=== PATIENT | male | born 1935 | race Caucasian/White ===

== ENCOUNTER → 2016-11-29 | Outpatient (REF) | payer MEDICARE ==
[~2016-11-29] MED LIST: /AUGM875TA OR; /GLIP10TAB OR; ASPI81TA83 OR; CIPR250T3 OR; COLA100C2 OR; GLUC5TAB PO; INSULANT SC; MYCOLOG CREAM TD; PERC5TAB8 OR; PERC7.5T8 OR; senokot PO
[2016-11-29 17:07] LABS: BASO # 0.1 K/mm3 (0.0-0.2); BASO % 0.9 % (0.0-1.0); EOS # 0.4 K/mm3 (0.0-0.50); EOS % 6.3 % (0.0-3.0); LARGE UNSTAINED CELL # 0.2 K/mm3 (0.0-0.4); LARGE UNSTAINED CELL % 3.1 % (0.0-4.0); LYMPH # 1.7 K/mm3 (1.5-4.5); LYMPH % 26.1 % (24.0-44.0); MEAN CORPUSCULAR HEMOGLOBIN 30.7 pg (27.0-33.0); MEAN CORPUSCULAR HGB CONC 32.3 g/dl (32.0-36.5); MEAN CORPUSCULAR VOLUME 95.3 fl (80.0-96.0); MONO # 0.4 K/mm3 (0.0-0.8); MONO % 5.8 % (0.0-5.0); NEUTROPHILS # 3.8 K/mm3 (1.8-7.7); NEUTROPHILS % 57.9 % (36.0-66.0); PLATELET COUNT, AUTOMATED 205 k/mm3 (150-450); RED CELL DISTRIBUTION WIDTH 13.2 % (11.5-14.5); WHITE BLOOD COUNT 6.6 K/mm3 (4.0-10.0)
[2016-11-29 17:35] LABS: ALBUMIN 3.4 GM/DL (3.2-5.2); ALBUMIN/GLOBULIN RATIO 1.17 (1.00-1.93); BILIRUBIN,TOTAL 0.6 MG/DL (0.2-1.0); CALCIUM LEVEL 8.2 MG/DL (8.8-10.2); CREATININE FOR GFR 1.92 MG/DL (0.70-1.30); TOTAL PROTEIN 6.3 GM/DL (6.4-8.2)
[2016-11-29 17:45] LABS: POTASSIUM SERUM 5.3 MEQ/L (3.5-5.1)
== END ==
LOC: M SFHCCAPE 09:46
PROVIDERS: ATTEND Physician Assistant
DX: E11.9 Type 2 diabetes mellitus without complications (principal); Z12.5 Encounter for screening for malignant neoplasm of prostate; E55.9 Vitamin D deficiency, unspecified
CPT/HCPCS: 36415; 80053; 80061; 82043; 82306; 83036; 84439; 84443; 85025; G0103

== ENCOUNTER → 2018-09-05 | Outpatient (REF) | payer MEDICARE ==
[~2018-09-05] MED LIST changes: +ALCOPAD17 TOP; +AMLO10TA5 PO; +BLOOKIT21 XX; +GLUC1TES2 XX; +LANC30MI XX; +LANTINJ4 SQ; +VELT1POW PO
[2018-09-05 17:40] LABS: PERCENT SATURATION 42.9 % (19.7-50.0)
== END ==
LOC: M LAB REF 16:51
PROVIDERS: ATTEND Internal Medicine Nephrology
DX: E87.5 Hyperkalemia (principal); D64.9 Anemia, unspecified

== ENCOUNTER → 2018-10-20 | Outpatient (REF) | payer MEDICARE ==
[2018-10-20 13:43] LABS: CREATININE,RANDOM URINE 49.3 MG/DL; POTASSIUM RANDOM URINE 28.1 MEQ/L
== END ==
LOC: M LAB REF 12:59
PROVIDERS: ATTEND Internal Medicine Nephrology
DX: E87.2 Acidosis (principal)

== ENCOUNTER 2023-10-01 11:58 | Inpatient (IN) | payer MEDICARE ==
[~2023-10-01] VITALS: Ht 182.9 cm; Wt 90.9 kg
[~2023-10-01 11:58] MED LIST changes: -AMLO10TA5 PO; +AMLO1TAB25 PO
[2023-10-01] MEDS ORDERED: HYDR-3490 PO (12:17)
[2023-10-01] MEDS ORDERED: MAGN400T2 PO (12:17)
[2023-10-01] MEDS ORDERED: ALLO100T PO (12:17)
[2023-10-01] MEDS ORDERED: CALC1CAP31 PO (12:17)
[2023-10-01 14:25] LABS: BASO # 0.1 10^3/uL (0.0-0.2); BASO % 0.7 % (0.0-1.0); EOS # 0.1 10^3/uL (0.0-0.5); EOS % 1.1 % (0.0-3.0); HEMATOCRIT 36.9 % (42.0-52.0); HEMOGLOBIN 11.9 g/dl (13.5-17.5); LYMPH # 1.2 10^3/uL (1.5-5.0); LYMPH % 11.8 % (24.0-44.0); MEAN CORPUSCULAR HEMOGLOBIN 31.7 pg (27.0-33.0); MEAN CORPUSCULAR HGB CONC 32.2 g/dl (32.0-36.5); MEAN CORPUSCULAR VOLUME 98.4 fl (80.0-96.0); MONO # 0.7 10^3/uL (0.0-0.8); MONO % 6.7 % (2.0-8.0); NEUTROPHILS # 7.7 10^3/uL (1.5-8.5); NEUTROPHILS % 78.8 % (36.0-66.0); PLATELET COUNT, AUTOMATED 225 10^3/uL (150-450); RED BLOOD COUNT 3.75 10^6/uL (4.30-6.10); WHITE BLOOD COUNT 9.8 10^3/uL (4.0-10.0)
[2023-10-01] MEDS: NS 1,000 ML IV ONE (14:41)
[2023-10-01 14:53] LABS: ALBUMIN 3.2 G/DL (3.2-5.2); ALKALINE PHOSPHATASE 123 U/L (46-116); ALT/SGPT < 9 U/L (7.0-40); AST/SGOT < 8 U/L (<34); BILIRUBIN,DIRECT 0.2 MG/DL (<0.4); BILIRUBIN,TOTAL 0.4 MG/DL (0.3-1.2); TOTAL PROTEIN 6.4 G/DL (5.7-8.2)
[2023-10-01 15:32] LABS: LIPASE 848 U/L (12-53)
[2023-10-01] MEDS: MORPHINE 2 MG/ML 1ML VIAL IV ONE (16:18)
[2023-10-01 16:29] LABS: TRIGLYCERIDES LEVEL 66 MG/DL (<150)
[2023-10-01] MEDS: LR 1,000 ML IV ONE (16:30)
[2023-10-01 17:40] VITALS: BP 206/83; TEMP 97.7; O2SAT 97
[2023-10-01 18:18] VITALS: BP 198/72
[2023-10-01] MEDS: MORPHINE 4 MG/ML 1ML VIAL IV PRN (18:45)
[2023-10-01] MEDS ORDERED: TEMO0.0517 TOP (18:47)
[2023-10-01] MEDS ORDERED: SODI650T PO (18:49)
[2023-10-01] MEDS ORDERED: HOME MED LIST COMPLETE! XX SCH (18:50)
[2023-10-01 20:00] VITALS: BP 152/54; TEMP 97.9; O2SAT 96
[2023-10-01] MEDS: LR 1,000 ML IV SCH (20:56)
[2023-10-02] MEDS: MORPHINE 2 MG/ML 1ML VIAL IV PRN (00:49)
[2023-10-02 01:00] VITALS: BP 128/62; TEMP 98.1; O2SAT 95
[2023-10-02 06:00] VITALS: BP 180/60; TEMP 97.9; O2SAT 96
[2023-10-02] MEDS: HEPARIN SOD (PORCINE) 5000UNITS/ML 1ML VIAL/SYRINGE SQ SCH (06:09)
[2023-10-02 06:20] LABS: HEMATOCRIT 34.6 % (42.0-52.0); HEMOGLOBIN 11.1 g/dl (13.5-17.5); MEAN CORPUSCULAR HEMOGLOBIN 32.2 pg (27.0-33.0); MEAN CORPUSCULAR HGB CONC 32.1 g/dl (32.0-36.5); MEAN CORPUSCULAR VOLUME 100.3 fl (80.0-96.0); PLATELET COUNT, AUTOMATED 184 10^3/uL (150-450); RED BLOOD COUNT 3.45 10^6/uL (4.30-6.10); WHITE BLOOD COUNT 8.7 10^3/uL (4.0-10.0)
[2023-10-02 06:42] LABS: CALCIUM LEVEL 8.1 MG/DL (8.3-10.6); CREATININE FOR GFR 3.51 MG/DL (0.70-1.30); GLOMERULAR FILTRATION RATE 17.7 (>35); PHOSPHORUS LEVEL 4.5 MG/DL (2.4-5.1); POTASSIUM SERUM 5.5 MMOL/L (3.5-5.1)
[2023-10-02 06:53] VITALS: BP 126/64
[2023-10-02 14:15] VITALS: BP 135/65; TEMP 97.9; O2SAT 94
[2023-10-02 14:30] LABS: CALCIUM LEVEL 7.9 MG/DL (8.3-10.6); CREATININE FOR GFR 3.25 MG/DL (0.70-1.30); GLOMERULAR FILTRATION RATE 19.3 (>35); POTASSIUM SERUM 5.4 MMOL/L (3.5-5.1)
[2023-10-02] MEDS: LEVEMIR (INSULIN DETEMIR) 1 UNITS/0.01ML SC SCH (18:00)
[2023-10-02 20:00] VITALS: BP 158/70; TEMP 97.7; O2SAT 93
[2023-10-02 20:05] VITALS: BP 158/70
[2023-10-03 06:00] VITALS: BP 135/81; TEMP 98.1; O2SAT 94
[2023-10-03 06:39] LABS: HEMOGLOBIN 10.3 g/dl (13.5-17.5); MEAN CORPUSCULAR HEMOGLOBIN 31.7 pg (27.0-33.0); MEAN CORPUSCULAR HGB CONC 32.2 g/dl (32.0-36.5); MEAN CORPUSCULAR VOLUME 98.5 fl (80.0-96.0); PLATELET COUNT, AUTOMATED 160 10^3/uL (150-450); RED BLOOD COUNT 3.25 10^6/uL (4.30-6.10); WHITE BLOOD COUNT 7.2 10^3/uL (4.0-10.0)
[2023-10-03 07:03] LABS: CREATININE FOR GFR 3.21 MG/DL (0.70-1.30); GLOMERULAR FILTRATION RATE 19.6 (>35); MAGNESIUM LEVEL 1.8 MG/DL (1.8-2.4); POTASSIUM SERUM 5.4 MMOL/L (3.5-5.1)
[2023-10-03] MEDS: SODIUM BICARBONATE 325 MG TAB PO SCH (07:59)
[2023-10-03] MEDS: CALCITRIOL 0.25 MCG CAP (S0169) PO SCH (07:59)
[2023-10-03] MEDS: MAGNESIUM OXIDE 400MG TAB (MAG-OX) PO SCH (07:59)
[2023-10-03] MEDS: CALCIUM GLUCONATE 1,000 MG in D5W MINI-BAG PLUS 100 ML IV ONE (07:59)
[2023-10-03] MEDS: FUROSEMIDE 40MG/4ML VIAL IV ONE (08:00)
[2023-10-03] MEDS: PATIROMER SORBITEX CALCIUM 8.4 GM POWDER PACKET (VELTASSA) PO ONE (08:01)
[2023-10-03] MEDS: HumuLIN R (REGULAR) INSULIN (NovoLIN R) **100U/ML** PER UNIT IV STA (08:01)
[2023-10-03] MEDS: DEXTROSE 50% 50ML SYRINGE IV STA (08:01)
[2023-10-03 13:46] LABS: CALCIUM LEVEL 8.3 MG/DL (8.3-10.6); CREATININE FOR GFR 3.17 MG/DL (0.70-1.30); GLOMERULAR FILTRATION RATE 19.9 (>35); POTASSIUM SERUM 5.1 MMOL/L (3.5-5.1)
[2023-10-03 14:00] VITALS: BP 173/66; TEMP 97.9; O2SAT 89
[2023-10-03] MEDS ORDERED: DEXTROSE 50% 50ML SYRINGE IV PRN (18:05)
[2023-10-03] MEDS ORDERED: GLUCOSE 4GM CHEW TABLET PO PRN (18:05)
[2023-10-03] MEDS ORDERED: GLUCAGON INJ 1MG VIAL SC PRN (18:05)
[2023-10-03 19:54] VITALS: BP 158/64; TEMP 97.7; O2SAT 92
[2023-10-03] MEDS: INSULIN LISPRO (NovoLOG) PER UNIT SC SCH (20:38)
[2023-10-03 20:39] VITALS: BP 158/64
[2023-10-04 05:28] VITALS: BP 164/58; TEMP 98.1; O2SAT 93
[2023-10-04 07:16] LABS: HEMATOCRIT 29.8 % (42.0-52.0); HEMOGLOBIN 9.8 g/dl (13.5-17.5); MEAN CORPUSCULAR HEMOGLOBIN 31.9 pg (27.0-33.0); MEAN CORPUSCULAR HGB CONC 32.9 g/dl (32.0-36.5); MEAN CORPUSCULAR VOLUME 97.1 fl (80.0-96.0); PLATELET COUNT, AUTOMATED 129 10^3/uL (150-450); RED BLOOD COUNT 3.07 10^6/uL (4.30-6.10); WHITE BLOOD COUNT 7.3 10^3/uL (4.0-10.0)
[2023-10-04 07:41] LABS: CALCIUM LEVEL 7.9 MG/DL (8.3-10.6); CREATININE FOR GFR 3.26 MG/DL (0.70-1.30); GLOMERULAR FILTRATION RATE 19.2 (>35); MAGNESIUM LEVEL 1.7 MG/DL (1.8-2.4); PHOSPHORUS LEVEL 3.4 MG/DL (2.4-5.1)
[2023-10-04 08:23] LABS: HEMOGLOBIN A1c 7.4 % (4.0-6.0)
[2023-10-04] MEDS: INSULIN LISPRO (NovoLOG) PER UNIT SC SCH (08:26)
[2023-10-04] MEDS ORDERED: NORV5TAB PO (10:24)
== END 2023-10-04 13:30 | disposition home health service (06) | DRG 439 ==
LOC: M ED 11:58 → EDBD 11:58 → M ED INP 16:30 → ENRESERV 17:14 → M MS5PR 17:35
PROVIDERS: ADMIT Internal Medicine; ATTEND Internal Medicine
DX: K85.90 Acute pancreatitis without necrosis or infection, unspecified (principal); N18.4 Chronic kidney disease, stage 4 (severe); N17.9 Acute kidney failure, unspecified; Z66 Do not resuscitate; I12.9 Hypertensive chronic kidney disease with stage 1 through stage 4 chronic kidney disease, or unspecified chronic kidney disease; M10.9 Gout, unspecified; Z90.79 Acquired absence of other genital organ(s); Z90.49 Acquired absence of other specified parts of digestive tract; Z79.899 Other long term (current) drug therapy; E87.5 Hyperkalemia

== ENCOUNTER 2024-05-28 09:15 | Inpatient (IN) | payer MEDICARE ==
[~2024-05-28 09:15] MED LIST changes: +ALLO100T PO; +CALC1CAP31 PO; +HYDR-3490 PO; +INSULANT SQ; +MAGN400T2 PO; +NORV5TAB PO; +SODI650T PO; +TEMO0.0517 TOP
[2024-05-28 11:47] LABS: BASO # 0.2 10^3/uL (0.0-0.2); BASO % 2.5 % (0.0-1.0); EOS # 0.1 10^3/uL (0.0-0.5); EOS % 1.7 % (0.0-3.0); HEMATOCRIT 33.9 % (42.0-52.0); HEMOGLOBIN 10.6 g/dl (13.5-17.5); LYMPH # 1.3 10^3/uL (1.5-5.0); MEAN CORPUSCULAR HEMOGLOBIN 32.7 pg (27.0-33.0); MEAN CORPUSCULAR HGB CONC 31.3 g/dl (32.0-36.5); MEAN CORPUSCULAR VOLUME 104.6 fl (80.0-96.0); MONO # 0.6 10^3/uL (0.0-0.8); NEUTROPHILS # 5.3 10^3/uL (1.5-8.5); NEUTROPHILS % 70.1 % (36.0-66.0); PLATELET COUNT, AUTOMATED 210 10^3/uL (150-450); RED BLOOD COUNT 3.24 10^6/uL (4.30-6.10); WHITE BLOOD COUNT 7.5 10^3/uL (4.0-10.0)
[2024-05-28 12:02] LABS: INR 1.25; PROTHROMBIN TIME 15.3 SECONDS (12.5-14.5)
[2024-05-28 12:41] LABS: THYROID STIMULATING HORMONE 2.907 uIU/ML (0.55-4.78); THYROXINE (T4) 8.1 UG/DL (4.5-10.9)
[2024-05-28 13:06] LABS: ALBUMIN 3.4 G/DL (3.2-5.2); ALKALINE PHOSPHATASE 136 U/L (46-116); ALT/SGPT 12 U/L (7.0-40); AST/SGOT < 8 U/L (<34); BILIRUBIN,DIRECT 0.3 MG/DL (<0.4); BILIRUBIN,TOTAL 0.7 MG/DL (0.3-1.2); BLOOD UREA NITROGEN 73 MG/DL (9-23); CALCIUM LEVEL 9.1 MG/DL (8.3-10.6); CARBON DIOXIDE LEVEL 21 MMOL/L (20-31); CHLORIDE LEVEL 117 MMOL/L (98-107); CREATININE FOR GFR 4.01 MG/DL (0.70-1.30); GLOMERULAR FILTRATION RATE 15.1 (>35); GLUCOSE, FASTING 110 MG/DL (74-106); POTASSIUM SERUM 6.4 MMOL/L (3.5-5.1); SODIUM LEVEL 144 MMOL/L (136-145); TOTAL PROTEIN 6.5 G/DL (5.7-8.2)
[2024-05-28] MEDS: PATIROMER SORBITEX CALCIUM 8.4 GM POWDER PACKET (VELTASSA) PO ONE (13:34)
[2024-05-28] MEDS: CALCIUM CHLORIDE 10% 1 GM/10 ML SYR IV ONE (13:34)
[2024-05-28] MEDS: DEXTROSE 50% 50ML SYRINGE IV ONE (13:34)
[2024-05-28] MEDS: HumuLIN R (REGULAR) INSULIN (NovoLIN R) **100U/ML** PER UNIT IV ONE (13:34)
[2024-05-28] MEDS: SODIUM BICARBONATE 8.4% INJ 50ML SYRINGE IV ONE (13:35)
[2024-05-28] MEDS: amLODIPine 5 MG TAB PO ONE (13:51)
[2024-05-28] MEDS ORDERED: HOME MED LIST COMPLETE! XX SCH (14:05)
[2024-05-28] MEDS ORDERED: LABETALOL 100MG/20ML VIAL IV PRN (14:20)
[2024-05-28] MEDS ORDERED: DEXTROSE 50% 50ML SYRINGE IV PRN (14:30)
[2024-05-28] MEDS ORDERED: GLUCAGON INJ 1MG VIAL SC PRN (14:30)
[2024-05-28] MEDS ORDERED: GLUCOSE 4 GM CHEW PO PRN (14:30)
[2024-05-28] MEDS: FUROSEMIDE 100MG/10ML VIAL IV ONE (15:16)
[2024-05-28] MEDS: ALBUTEROL SULFATE 2.5MG/0.5ML INH NEB SOLN NEB ONE (15:16)
[2024-05-28 15:38] LABS: IRON (FE) 40 UG/DL (65-175); PERCENT SATURATION 14.6 % (19.7-50.0); TOTAL IRON BINDING CAPACITY 274 UG/DL (250-425)
[2024-05-28 15:41] LABS: FERRITIN 245.9 NG/ML (10.5-307.3); FOLATE 8.07 NG/ML (>5.4); VITAMIN B12 LEVEL 255 PG/ML (211-911)
[2024-05-28] MEDS: **hydrALAZINE HCL** 25 MG TAB PO SCH (16:00)
[2024-05-28] MEDS: INSULIN LISPRO (NovoLOG) PER UNIT SC SCH ×2 (16:37→20:07)
[2024-05-28 16:39] VITALS: BP 125/59; TEMP 97.9; O2SAT 100
[2024-05-28] MEDS: SODIUM BICARBONATE 325 MG TAB PO SCH (17:39)
[2024-05-28] MEDS: SODIUM BICARBONATE 8.4% INJ 50ML SYRINGE IV STA (18:56)
[2024-05-28] MEDS: FUROSEMIDE 20MG/2ML VIAL IV ONE (19:54)
[2024-05-28 19:56] VITALS: BP 145/66; TEMP 98.2; O2SAT 99
[2024-05-28] MEDS: HEPARIN SOD (PORCINE) 5000UNITS/ML 1ML VIAL/SYRINGE SC SCH (21:28)
[2024-05-28 23:31] VITALS: BP 139/63; TEMP 98.3; O2SAT 96
[2024-05-29] VITALS (7 sets, daily range): BP systolic 124–145; BP diastolic 56–85; TEMP 97.7–98.7; O2SAT 95–96
[2024-05-29] MEDS: ALBUTEROL SULFATE 2.5MG/0.5ML INH NEB SOLN NEB ONE (00:39)
[2024-05-29 06:24] LABS: HEMATOCRIT 29.5 % (42.0-52.0); HEMOGLOBIN 9.2 g/dl (13.5-17.5); MEAN CORPUSCULAR HEMOGLOBIN 32.1 pg (27.0-33.0); MEAN CORPUSCULAR HGB CONC 31.2 g/dl (32.0-36.5); MEAN CORPUSCULAR VOLUME 102.8 fl (80.0-96.0); PLATELET COUNT, AUTOMATED 191 10^3/uL (150-450); RED BLOOD COUNT 2.87 10^6/uL (4.30-6.10); WHITE BLOOD COUNT 7.5 10^3/uL (4.0-10.0)
[2024-05-29 06:35] LABS: CALCIUM LEVEL 8.7 MG/DL (8.3-10.6); CREATININE FOR GFR 4.32 MG/DL (0.70-1.30); GLOMERULAR FILTRATION RATE 13.9 (>35); POTASSIUM SERUM 5.5 MMOL/L (3.5-5.1)
[2024-05-29] MEDS: FUROSEMIDE 100MG/10ML VIAL IV ONE (13:02)
[2024-05-29] MEDS: PATIROMER SORBITEX CALCIUM 8.4 GM POWDER PACKET (VELTASSA) PO SCH (14:34)
[2024-05-30 03:24] VITALS: BP 119/55; TEMP 99.3; O2SAT 92
[2024-05-30 07:28] VITALS: BP_SYST 159; BP_DIAS 67; BP_DIAS 76; TEMP 99; O2SAT 95
[2024-05-30 09:07] LABS: HEMATOCRIT 30.3 % (42.0-52.0); HEMOGLOBIN 9.5 g/dl (13.5-17.5); MEAN CORPUSCULAR HEMOGLOBIN 32.4 pg (27.0-33.0); MEAN CORPUSCULAR HGB CONC 31.4 g/dl (32.0-36.5); MEAN CORPUSCULAR VOLUME 103.4 fl (80.0-96.0); PLATELET COUNT, AUTOMATED 195 10^3/uL (150-450); RED BLOOD COUNT 2.93 10^6/uL (4.30-6.10); WHITE BLOOD COUNT 6.2 10^3/uL (4.0-10.0)
[2024-05-30] MEDS: CALCIUM GLUCONATE 1,000 MG in D5W MINI-BAG PLUS 100 ML IV ONE (09:21)
[2024-05-30 09:35] LABS: CALCIUM LEVEL 8.9 MG/DL (8.3-10.6); CREATININE FOR GFR 4.7 MG/DL (0.70-1.30); GLOMERULAR FILTRATION RATE 12.6 (>35); POTASSIUM SERUM 5.9 MMOL/L (3.5-5.1)
[2024-05-30] MEDS: PATIROMER SORBITEX CALCIUM 8.4 GM POWDER PACKET (VELTASSA) PO SCH (12:46)
[2024-05-30] MEDS: FUROSEMIDE 100MG/10ML VIAL IV ONE (12:47)
[2024-05-30] MEDS: metOLazone 5 MG TAB PO ONE (12:48)
[2024-05-30 15:39] VITALS: BP 173/73; TEMP 98.4; O2SAT 97
[2024-05-30 15:43] VITALS: BP 136/64
[2024-05-30] MEDS: NS 1,000 ML IV SCH (16:23)
[2024-05-30 17:02] LABS: APPEARANCE, URINE CLEAR (CLEAR); BACTERIA, URINE AUTO NEGATIVE (NEGATIVE); BILIRUBIN, URINE AUTO NEGATIVE (NEGATIVE); BLOOD, URINE BLOOD NEGATIVE (NEGATIVE); COLOR, URINE YELLOW (YELLOW); GLUCOSE, URINE (UA) AUTO 1+ mg/dL (NEGATIVE); KETONE, URINE AUTO NEGATIVE (NEGATIVE); LEUKOCYTE ESTERASE, URINE AUTO NEGATIVE (NEGATIVE); MUCUS, URINE SMALL (NEGATIVE); NITRITE, URINE AUTO NEGATIVE (NEGATIVE); PROTEIN, URINE AUTO 1+ mg/dL (NEGATIVE); RBC, URINE AUTO 0 /HPF (0-3); SPECIFIC GRAVITY URINE AUTO 1.009 (1.002-1.035); SQUAMOUS EPITHELIAL CELL UR AU 0 /HPF (0-6); UROBILINOGEN, URINE AUTO 0.2 mg/dL (0.0-2.0); WBC, URINE AUTO 0 /HPF (0-3)
[2024-05-30 19:21] VITALS: BP 142/65; TEMP 98.3; O2SAT 98
[2024-05-31 03:07] VITALS: BP 139/64; TEMP 98; O2SAT 94
[2024-05-31 07:00] VITALS: TEMP 98; O2SAT 95
[2024-05-31 08:07] VITALS: BP 156/72
[2024-05-31 09:53] LABS: BASO # 0.2 10^3/uL (0.0-0.2); BASO % 2.6 % (0.0-1.0); EOS # 0.3 10^3/uL (0.0-0.5); EOS % 5.6 % (0.0-3.0); HEMATOCRIT 29.3 % (42.0-52.0); HEMOGLOBIN 9.3 g/dl (13.5-17.5); LYMPH % 16.4 % (24.0-44.0); MEAN CORPUSCULAR HGB CONC 31.7 g/dl (32.0-36.5); MEAN CORPUSCULAR VOLUME 103.9 fl (80.0-96.0); MONO # 0.5 10^3/uL (0.0-0.8); MONO % 8.9 % (2.0-8.0); NEUTROPHILS % 65.7 % (36.0-66.0); PLATELET COUNT, AUTOMATED 183 10^3/uL (150-450); RED BLOOD COUNT 2.82 10^6/uL (4.30-6.10); WHITE BLOOD COUNT 6.1 10^3/uL (4.0-10.0)
[2024-05-31 10:25] LABS: ALBUMIN 2.9 G/DL (3.2-5.2); CALCIUM LEVEL 8.4 MG/DL (8.3-10.6); CREATININE FOR GFR 4.7 MG/DL (0.70-1.30); GLOMERULAR FILTRATION RATE 12.6 (>35); MAGNESIUM LEVEL 2.1 MG/DL (1.8-2.4); PHOSPHORUS LEVEL 4.4 MG/DL (2.4-5.1); POTASSIUM SERUM 5.3 MMOL/L (3.5-5.1)
[2024-05-31] MEDS: amLODIPine 5 MG TAB PO SCH (12:33)
[2024-05-31 16:00] VITALS: TEMP 98.4; O2SAT 98
[2024-05-31 19:08] VITALS: BP 134/79; TEMP 98.5; O2SAT 97
[2024-06-01] VITALS: BP 137/67; TEMP 98.9; O2SAT 96
[2024-06-01 04:18] VITALS: BP 138/63; TEMP 98.8; O2SAT 95
[2024-06-01 05:38] LABS: CREATININE FOR GFR 4.98 MG/DL (0.70-1.30); GLOMERULAR FILTRATION RATE 11.8 (>35); PHOSPHORUS LEVEL 4.9 MG/DL (2.4-5.1); POTASSIUM SERUM 4.6 MMOL/L (3.5-5.1)
[2024-06-01 08:00] VITALS: BP 138/63; TEMP 98.7; O2SAT 95
[2024-06-01 08:12] VITALS: BP 138/63
[2024-06-01] MEDS: hydroCHLOROthiazide 12.5 MG CAPSULE PO SCH (09:37)
[2024-06-01] MEDS: PATIROMER SORBITEX CALCIUM 8.4 GM POWDER PACKET (VELTASSA) PO SCH (09:37)
[2024-06-01] MEDS: FUROSEMIDE 10MG PER 1/2 TABLET PO SCH (10:08)
[2024-06-01] MEDS ORDERED: AMLO1TAB24 PO (10:18)
[2024-06-01] MEDS ORDERED: SODI650T PO (10:18)
[2024-06-01] MEDS ORDERED: VELT1POW PO (10:18)
[2024-06-01] MEDS ORDERED: HYDR12CA PO (10:18)
[2024-06-01] MEDS ORDERED: SELF1KIT MC (10:18)
[2024-06-01] MEDS ORDERED: FURO20TA2 PO (10:18)
== END 2024-06-01 12:07 | disposition home or self-care (01) | DRG 291 ==
LOC: M ED 09:15 → M ED INP 14:19 → M PCU 16:19
PROVIDERS: ADMIT Internal Medicine; ATTEND Internal Medicine
PROC: B246ZZZ Ultrasonography of Right and Left Heart (ICD-10-PCS; principal; 2024-05-28)
DX: I13.0 Hypertensive heart and chronic kidney disease with heart failure and stage 1 through stage 4 chronic kidney disease, or unspecified chronic kidney disease (principal); I50.33 Acute on chronic diastolic (congestive) heart failure; N18.4 Chronic kidney disease, stage 4 (severe); N17.9 Acute kidney failure, unspecified; J90 Pleural effusion, not elsewhere classified; E87.20 Acidosis, unspecified; Z66 Do not resuscitate; M10.9 Gout, unspecified; E11.22 Type 2 diabetes mellitus with diabetic chronic kidney disease; E87.5 Hyperkalemia; I16.0 Hypertensive urgency; D63.1 Anemia in chronic kidney disease; Z79.4 Long term (current) use of insulin; Z79.899 Other long term (current) drug therapy; Z11.52 Encounter for screening for COVID-19; R26.89 Other abnormalities of gait and mobility; I35.1 Nonrheumatic aortic (valve) insufficiency

== ENCOUNTER 2024-06-02 01:17 | Emergency (ER) | payer MEDICARE ==
[~2024-06-02] VITALS: Ht 182.9 cm; Wt 90.9 kg
[~2024-06-02 01:17] MED LIST changes: +AMLO1TAB24 PO; +FURO20TA2 PO; +HYDR12CA PO; -INSULANT SQ; +SELF1KIT MC
[2024-06-02] MEDS: HYDROMORPHONE HCL 0.5 MG/ 0.5 ML SYRINGE IV ONE (02:15)
[2024-06-02] MEDS: LIDOCAINE 2% 5ML JELLY UROJET TOP ONE (02:15)
[2024-06-02 03:16] LABS: HEMATOCRIT 32.3 % (42.0-52.0); HEMOGLOBIN 10.2 g/dl (13.5-17.5); MEAN CORPUSCULAR HEMOGLOBIN 32.3 pg (27.0-33.0); MEAN CORPUSCULAR HGB CONC 31.6 g/dl (32.0-36.5); MEAN CORPUSCULAR VOLUME 102.2 fl (80.0-96.0); PLATELET COUNT, AUTOMATED 193 10^3/uL (150-450); RED BLOOD COUNT 3.16 10^6/uL (4.30-6.10)
[2024-06-02 03:35] LABS: CALCIUM LEVEL 8.7 MG/DL (8.3-10.6); CREATININE FOR GFR 4.91 MG/DL (0.70-1.30); POTASSIUM SERUM 4.4 MMOL/L (3.5-5.1)
[2024-06-02 04:21] VITALS: BP 122/73; TEMP 98.3; O2SAT 97
== END 2024-06-02 04:33 | disposition home or self-care (01) ==
LOC: M ED 01:17
DX: R33.9 Retention of urine, unspecified (principal); I50.9 Heart failure, unspecified

== ENCOUNTER 2024-06-13 19:49 | Inpatient (IN) | payer MEDICARE ==
[~2024-06-13] VITALS: Ht 182.9 cm; Wt 93.2 kg
[2024-06-13] MEDS: LIDOCAINE 2% 5ML JELLY UROJET TOP ONE (20:30)
[2024-06-13 22:03] LABS: BASO # 0.1 10^3/uL (0.0-0.2); BASO % 0.4 % (0.0-1.0); EOS % 0.1 % (0.0-3.0); HEMATOCRIT 28.9 % (42.0-52.0); HEMOGLOBIN 9.2 g/dl (13.5-17.5); LYMPH # 0.8 10^3/uL (1.5-5.0); LYMPH % 5.4 % (24.0-44.0); MEAN CORPUSCULAR HEMOGLOBIN 31.9 pg (27.0-33.0); MEAN CORPUSCULAR HGB CONC 31.8 g/dl (32.0-36.5); MEAN CORPUSCULAR VOLUME 100.3 fl (80.0-96.0); MONO # 1.1 10^3/uL (0.0-0.8); MONO % 7.5 % (2.0-8.0); NEUTROPHILS # 12.2 10^3/uL (1.5-8.5); NEUTROPHILS % 85.8 % (36.0-66.0); PLATELET COUNT, AUTOMATED 216 10^3/uL (150-450); RED BLOOD COUNT 2.88 10^6/uL (4.30-6.10); WHITE BLOOD COUNT 14.2 10^3/uL (4.0-10.0)
[2024-06-13 22:29] LABS: ALBUMIN 3.2 G/DL (3.2-5.2); BILIRUBIN,DIRECT 0.3 MG/DL (<0.4); BILIRUBIN,TOTAL 0.6 MG/DL (0.3-1.2); CALCIUM LEVEL 9.4 MG/DL (8.3-10.6); CREATININE FOR GFR 5.97 MG/DL (0.70-1.30); GLOMERULAR FILTRATION RATE 9.6 (>35); POTASSIUM SERUM 5.1 MMOL/L (3.5-5.1); TOTAL PROTEIN 6.4 G/DL (5.7-8.2)
[2024-06-13] MEDS: NS 1,000 ML IV SCH (22:30)
[2024-06-13] MEDS: NS 500 ML IV ONE (22:30)
[2024-06-13 22:32] LABS: THYROID STIMULATING HORMONE 3.174 uIU/ML (0.55-4.78)
[2024-06-13] MEDS: cefTRIAXone SOD 1 GM in DEXTROSE 5% (D5W) ADV/MINI-BAG 50 ML IV ONE (23:00)
[2024-06-13] MEDS ORDERED: MOM 30ML SUSPENSION UDC PO PRN (23:35)
[2024-06-13] MEDS ORDERED: GLUCAGON INJ 1MG VIAL SC PRN (23:35)
[2024-06-13] MEDS ORDERED: GLUCOSE 4 GM CHEW PO PRN (23:35)
[2024-06-13] MEDS ORDERED: ACETAMINOPHEN 325 MG TAB PO PRN (23:35)
[2024-06-13] MEDS ORDERED: MAALOX 30 ML SUSP *UDC PO PRN (23:35)
[2024-06-13] MEDS ORDERED: DEXTROSE 50% 50ML SYRINGE IV PRN (23:35)
[2024-06-14] MEDS ORDERED: SODI650T PO (00:22)
[2024-06-14] MEDS ORDERED: FURO20TA2 PO (00:22)
[2024-06-14] MEDS ORDERED: VELT1POW PO (00:22)
[2024-06-14] MEDS ORDERED: NORV5TAB PO (00:22)
[2024-06-14] MEDS ORDERED: GABA-1171 PO (00:23)
[2024-06-14] MEDS ORDERED: TAMS1CAP17 PO (00:23)
[2024-06-14] MEDS ORDERED: HOME MED LIST COMPLETE! XX SCH (00:25)
[2024-06-14 07:06] LABS: CALCIUM LEVEL 8.6 MG/DL (8.3-10.6); CREATININE FOR GFR 5.78 MG/DL (0.70-1.30); GLOMERULAR FILTRATION RATE 9.9 (>35); MAGNESIUM LEVEL 2.4 MG/DL (1.8-2.4)
[2024-06-14] MEDS: INSULIN LISPRO (NovoLOG) PER UNIT SC SCH ×2 (09:25→21:00)
[2024-06-14] MEDS: PATIROMER SORBITEX CALCIUM 8.4 GM POWDER PACKET (VELTASSA) PO SCH (09:25)
[2024-06-14] MEDS: cefTRIAXone SOD 1 GM in DEXTROSE 5% (D5W) ADV/MINI-BAG 50 ML IV SCH (09:25)
[2024-06-14] MEDS: MAGNESIUM OXIDE 400MG TAB (MAG-OX) PO SCH (09:27)
[2024-06-14] MEDS: GABAPENTIN 100 MG CAP PO SCH (09:27)
[2024-06-14] MEDS: TAMSULOSIN 0.4 MG CAP PO SCH (09:27)
[2024-06-14] MEDS: amLODIPine 5 MG TAB PO SCH (09:28)
[2024-06-14] MEDS: SODIUM BICARBONATE 325 MG TAB PO SCH (09:29)
[2024-06-14] MEDS: HEPARIN SOD (PORCINE) 5000UNITS/ML 1ML VIAL/SYRINGE SC SCH (09:31)
[2024-06-14] MEDS: NS 1,000 ML IV SCH (10:47)
[2024-06-14 10:55] LABS: BASO # 0.1 10^3/uL (0.0-0.2); BASO % 0.5 % (0.0-1.0); EOS # 0.1 10^3/uL (0.0-0.5); EOS % 0.6 % (0.0-3.0); HEMATOCRIT 27.4 % (42.0-52.0); HEMOGLOBIN 8.9 g/dl (13.5-17.5); LYMPH # 0.8 10^3/uL (1.5-5.0); LYMPH % 8.1 % (24.0-44.0); MEAN CORPUSCULAR HGB CONC 32.5 g/dl (32.0-36.5); MEAN CORPUSCULAR VOLUME 101.5 fl (80.0-96.0); MONO # 0.8 10^3/uL (0.0-0.8); MONO % 8.2 % (2.0-8.0); NEUTROPHILS # 8.4 10^3/uL (1.5-8.5); NEUTROPHILS % 81.9 % (36.0-66.0); PLATELET COUNT, AUTOMATED 197 10^3/uL (150-450); WHITE BLOOD COUNT 10.3 10^3/uL (4.0-10.0)
[2024-06-14 12:08] VITALS: BP 154/70; TEMP 98.2; O2SAT 96
[2024-06-14 12:21] LABS: PERCENT SATURATION 6.8 % (19.7-50.0)
[2024-06-14 12:23] LABS: FERRITIN 251.6 NG/ML (10.5-307.3); FOLATE 4.86 NG/ML (>5.4)
[2024-06-14 15:13] VITALS: BP 138/55; TEMP 97.9; O2SAT 94
[2024-06-14] MEDS: FERRIC CARBOXYMALTOSE INJ 750 MG, VIAL MATE ADAPTER 1 EACH in NS 100 ML IV ONE (16:25)
[2024-06-14] MEDS ORDERED: MIRALAX *UNIT DOSE* 17GM PACKET PO PRN (19:05)
[2024-06-14] MEDS ORDERED: BISACODYL 10MG SUPP PR PRN (19:05)
[2024-06-14 19:56] VITALS: BP 139/58; TEMP 97.9; O2SAT 94
[2024-06-14 21:00] VITALS: BP 139/58; TEMP 97.9; O2SAT 94
[2024-06-14] MEDS ORDERED: LEVEMIR (INSULIN DETEMIR) 1 UNITS/0.01ML SC SCH (21:00)
[2024-06-14] MEDS: DOCUSATE SODIUM 100MG CAPSULE PO SCH (21:03)
[2024-06-15 04:00] VITALS: BP 130/52; TEMP 98.2; O2SAT 94
[2024-06-15 05:16] LABS: BASO # 0.1 10^3/uL (0.0-0.2); BASO % 0.9 % (0.0-1.0); EOS # 0.1 10^3/uL (0.0-0.5); EOS % 1.5 % (0.0-3.0); HEMATOCRIT 26.1 % (42.0-52.0); HEMOGLOBIN 8.2 g/dl (13.5-17.5); LYMPH % 12.2 % (24.0-44.0); MEAN CORPUSCULAR HEMOGLOBIN 31.8 pg (27.0-33.0); MEAN CORPUSCULAR HGB CONC 31.4 g/dl (32.0-36.5); MEAN CORPUSCULAR VOLUME 101.2 fl (80.0-96.0); MONO # 0.7 10^3/uL (0.0-0.8); MONO % 8.2 % (2.0-8.0); NEUTROPHILS # 6.1 10^3/uL (1.5-8.5); PLATELET COUNT, AUTOMATED 186 10^3/uL (150-450); RED BLOOD COUNT 2.58 10^6/uL (4.30-6.10)
[2024-06-15 05:39] LABS: CALCIUM LEVEL 8.4 MG/DL (8.3-10.6); CREATININE FOR GFR 5.95 MG/DL (0.70-1.30); GLOMERULAR FILTRATION RATE 9.6 (>35); POTASSIUM SERUM 4.2 MMOL/L (3.5-5.1)
[2024-06-15 12:00] VITALS: BP 165/54; TEMP 97.9; O2SAT 96
[2024-06-15] MEDS: PATIROMER SORBITEX CALCIUM 8.4 GM POWDER PACKET (VELTASSA) PO SCH (12:10)
[2024-06-15] MEDS: **hydrALAZINE HCL** 25 MG TAB PO SCH (13:31)
[2024-06-15 20:33] VITALS: BP 149/53; TEMP 97.9; O2SAT 97
[2024-06-16 04:00] VITALS: BP 146/54; TEMP 98.2; O2SAT 96
[2024-06-16 09:21] VITALS: BP 122/47
[2024-06-16 09:59] LABS: BASO # 0.1 10^3/uL (0.0-0.2); EOS % 0.4 % (0.0-3.0); HEMATOCRIT 27.9 % (42.0-52.0); HEMOGLOBIN 8.8 g/dl (13.5-17.5); LYMPH # 0.8 10^3/uL (1.5-5.0); LYMPH % 8.7 % (24.0-44.0); MEAN CORPUSCULAR HEMOGLOBIN 32.1 pg (27.0-33.0); MEAN CORPUSCULAR HGB CONC 31.5 g/dl (32.0-36.5); MEAN CORPUSCULAR VOLUME 101.8 fl (80.0-96.0); MONO # 0.7 10^3/uL (0.0-0.8); MONO % 7.9 % (2.0-8.0); NEUTROPHILS # 7.4 10^3/uL (1.5-8.5); PLATELET COUNT, AUTOMATED 204 10^3/uL (150-450); RED BLOOD COUNT 2.74 10^6/uL (4.30-6.10); WHITE BLOOD COUNT 9.3 10^3/uL (4.0-10.0)
[2024-06-16 10:29] LABS: CALCIUM LEVEL 8.6 MG/DL (8.3-10.6); CREATININE FOR GFR 6.34 MG/DL (0.70-1.30); GLOMERULAR FILTRATION RATE 8.9 (>35); MAGNESIUM LEVEL 2.4 MG/DL (1.8-2.4); POTASSIUM SERUM 4.5 MMOL/L (3.5-5.1)
[2024-06-16] MEDS ORDERED: HYOSCYAMINE SULFATE 0.125 MG SUBL TABLET PO PRN (11:05)
[2024-06-16] MEDS ORDERED: ONDANSETRON 4MG ORAL DISINTEGRATING TAB PO PRN (11:05)
[2024-06-16] MEDS: LORazepam 1 MG TAB PO PRN (11:20)
[2024-06-16] MEDS: MORPHINE 10MG/0.5ML ORAL CONCENTRATE SOLUTION U/D SL PRN (12:23)
[2024-06-16] MEDS: LEVEMIR (INSULIN DETEMIR) 1 UNITS/0.01ML SC SCH (21:00)
[2024-06-17] MEDS: allopurinoL 100 MG TAB PO SCH (09:00)
[2024-06-17] MEDS ORDERED: LORazepam 1 MG TAB PO PRN (13:35)
[2024-06-17] MEDS ORDERED: MORP1SOL5 PO (14:45)
[2024-06-17] MEDS ORDERED: ATIV1TAB10 PO (14:45)
[2024-06-17] MEDS ORDERED: HYOS125TA PO (14:45)
[2024-06-17] MEDS: LORazepam 1 MG TAB PO SCH (20:19)
[2024-06-17] MEDS: MORPHINE 10MG/0.5ML ORAL CONCENTRATE SOLUTION U/D SL SCH (20:21)
== END 2024-06-18 09:34 | disposition hospice, home (50) | DRG 698 ==
LOC: M ED 19:49 → M ED INP 23:29 → M MSPAV 06-14 15:23
PROVIDERS: ADMIT Student in an Organized Health Care Education/Training Program; ATTEND Internal Medicine
DX: T83.518A Infection and inflammatory reaction due to other urinary catheter, initial encounter (principal); N18.6 End stage renal disease; N17.9 Acute kidney failure, unspecified; N39.0 Urinary tract infection, site not specified; I12.0 Hypertensive chronic kidney disease with stage 5 chronic kidney disease or end stage renal disease; E11.649 Type 2 diabetes mellitus with hypoglycemia without coma; Z66 Do not resuscitate; E21.1 Secondary hyperparathyroidism, not elsewhere classified; E11.22 Type 2 diabetes mellitus with diabetic chronic kidney disease; E11.42 Type 2 diabetes mellitus with diabetic polyneuropathy; M10.9 Gout, unspecified; D63.1 Anemia in chronic kidney disease; Z79.4 Long term (current) use of insulin; Z79.899 Other long term (current) drug therapy; Z85.46 Personal history of malignant neoplasm of prostate; Z90.79 Acquired absence of other genital organ(s); Z98.42 Cataract extraction status, left eye; Z90.49 Acquired absence of other specified parts of digestive tract; E78.5 Hyperlipidemia, unspecified